=== PATIENT | male | born 1990 | race Native Hawaiian/Other Pacific Islander ===

== ENCOUNTER → 2016-09-08 09:25 | Outpatient (CLI) | payer OTHER ==
[~2016-09-08 09:25] MED LIST: ADDERALL30 MG PO
== END | disposition home or self-care (01) ==
LOC: AMB 09:25
DX: Z04.8 Encounter for examination and observation for other specified reasons (principal)

== ENCOUNTER 2022-07-27 14:39 | Emergency (ER) | payer OTHER ==
[~2022-07-27] VITALS: Ht 185.4 cm; Wt 113.4 kg
[2022-07-27 14:44] VITALS: BP 132/75; TEMP 97.9
== END 2022-07-27 15:44 | disposition home or self-care (01) ==
LOC: ED 14:39
PROC: 2W3JX1Z Immobilization of Right Finger using Splint (ICD-10-PCS; principal; 2022-07-27)
DX: S69.91XA Unspecified injury of right wrist, hand and finger(s), initial encounter (principal); S62.306A Unspecified fracture of fifth metacarpal bone, right hand, initial encounter for closed fracture; W18.2XXA Fall in (into) shower or empty bathtub, initial encounter
CPT/HCPCS: 96372; 99283; J1885